=== PATIENT | male | born 1990 | race Caucasian/White ===

== ENCOUNTER 2018-09-08 15:37 | Emergency (ER) | payer BC, OTHER ==
--- NOTE | 2018-09-08 16:17 | EDM.PDOC ---
ED HPI GENERAL MEDICAL PROBLEM - General Chief Complaint: Head Injury Stated Complaint: POSSIBLE CONCUSSION? Time Seen by Provider: 09/08/18 16:17 Source of Information: Reports: Patient History Limitations: Reports: No Limitations - History of Present Illness INITIAL COMMENTS - FREE TEXT/NARRATIVE: Injury occurred 07 September Onset: Sudden Onset Date: 09/07/18 Onset Time: 14:00 Duration: Hour(s): Location: Reports: Head Quality: Reports: Ache, Dull Severity: Moderate Improves with: Reports: Rest Worsens with: Reports: Movement Associated Symptoms: Reports: Headaches, Malaise, Weakness Right Head Pain Score (Numeric/FACES): 3 - Related Data Allergies Allergy/AdvReac Type Severity Reaction Status Date / Time ceftriaxone [From Rocephin] Allergy Rash Verified 09/08/18 15:50 Penicillins Allergy Rash Verified 09/08/18 15:50 Home Meds: Home Meds Methylphenidate HCl [Methylphenidate ER] 54 mg PO DAILY 09/08/18 [History] Past Medical History HEENT History: Reports: Otitis Media Cardiovascular History: Reports: High Cholesterol Gastrointestinal History: Reports: Chronic Constipation, Hemorrhoids Psychiatric History: Reports: ADD - Infectious Disease History Infectious Disease History: Reports: Chicken Pox - Past Surgical History HEENT Surgical History: Reports: Myringotomy w Tube(s), Oral Surgery Social & Family History - Family History Family Medical History: Noncontributory - Tobacco Use Smoking Status *Q: Never Smoker Second Hand Smoke Exposure: No - Caffeine Use Caffeine Use: Reports: Coffee, Soda Caffeine Use Comment: multiple cups/sodas/day - Alcohol Use Days Per Week of Alcohol Use: 7 Number of Drinks Per Day: 2 Total Drinks Per Week: 14 - Recreational Drug Use Recreational Drug Use: No ED ROS GENERAL - Review of Systems Review Of Systems: See Below Constitutional: Reports: No Symptoms HEENT: Reports: Other (imbalance feeling, but no fall) Respiratory: Reports: No Symptoms Cardiovascular: Reports: No Symptoms Endocrine: Reports: No Symptoms GI/Abdominal: Reports: No Symptoms : Reports: No Symptoms Musculoskeletal: Reports: No Symptoms Skin: Reports: Wound (rt scalp upper parietal) Neurological: Reports: Headache, Weakness Psychiatric: Reports: No Symptoms Hematologic/Lymphatic: Reports: No Symptoms Immunologic: Reports: No Symptoms ED EXAM, HEAD INJURY - Physical Exam Exam: See Below General Appearance: Alert, WD/WN, No Apparent Distress, Mild Distress Head: Scalp Lacerations (No active bleeding no evidence of infection), Scalp Hematoma Ears: Normal External Exam, Normal Canal, Hearing Grossly Normal, Normal TMs Nose: Normal Inspection, Normal Mucousa, No Blood Throat/Mouth: Normal Inspection, Normal Lips, Normal Teeth, Normal Gums, Normal Oropharynx, Normal Voice, No Airway Compromise Neck: Non-Tender, Full Range of Motion, Normal Alignment, Normal Inspection Respiratory: No Respiratory Distress, Lungs Clear, Normal Breath Sounds, No Accessory Muscle Use, Chest Non-Tender Cardiovascular: Normal Peripheral Pulses, Regular Rate, Rhythm, No Edema, No Gallop, No JVD, No Murmur, No Rub GI/Abdominal Exam: Normal Bowel Sounds, Soft, Non-Tender, No Organomegaly, No Distention, No Abnormal Bruit, No Mass (Male) Exam: Deferred Rectal (Males) Exam: Deferred Back Exam: Full Range of Motion Extremities: Normal Range of Motion, Non-Tender, Normal Capillary Refill 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 No: Abnormal Gait, Aphasia, Facial Droop, Motor Weakness Skin: Normal Color, Warm/Dry - [place] Coma Score Best Eye Response ([place]): (4) Open Spontaneously Best Verbal Response ([place]): (5) Oriented Best Motor Response ([place]): (6) Obeys Commands Course - Vital Signs Last Recorded V/S: Last Vital Signs Temp 37.2 C 09/08/18 15:52 Pulse 79 09/08/18 15:52 Resp 16 09/08/18 15:52 BP 148/91 H 09/08/18 16:13 Pulse Ox 99 09/08/18 15:52 - Orders/Labs/Meds Orders: Active Orders 24 hr Category Date Time Status Vaccines to be Administered [RC] PER UNIT ROUTINE Care 09/08/18 16:24 Active Meds: Medications Discontinued Medications Generic Name Dose Route Start Last Admin Trade Name Freq PRN Reason Stop Dose Admin Diphtheria/Tetanus/Acell Pertussis 0.5 ml 09/08/18 16:24 09/08/18 16:36 Adacel IM 09/08/18 16:25 0.5 ml .ONCE ONE Administration Departure - Departure Time of Disposition: 16:37 Disposition: Home, Self-Care 01 Condition: Good Clinical Impression: Concussion with no loss of consciousness, Post concussion syndrome, Laceration Concussion Qualifiers: Encounter type: initial encounter Loss of consciousness presence/duration: without LOC Qualified Code(s): S06.0X0A - Concussion without loss of consciousness, initial encounter - Discharge Information *PRESCRIPTION DRUG MONITORING PROGRAM REVIEWED*: Not Applicable *COPY OF PRESCRIPTION DRUG MONITORING REPORT IN PATIENT DERICK: Not Applicable Instructions: Head Injury, Adult Referrals: Stefanie Blair MD [Primary Care Provider] - Forms: ED Department Discharge Additional Instructions: Home rest with no light sensitive activity, TV, Computer and such. Quite cool environment until improving. Avoid caffeine and stimulants. Contact employer for W[employer] documentation. Recheck at you clinic on Wednesday, for release clearing you to return to work paperwork. Call them tomorrow to assure appointment time. Eat and drink healthy well balanced diet. return if worsens or contact your clinic - Problem List & Annotations (1) Post concussion syndrome SNOMED Code(s): 88817041 Code(s): F07.81 - POSTCONCUSSIONAL SYNDROME Status: Acute Priority: High Onset Date: ~09/08/18 (2) Immunization due SNOMED Code(s): 627311771 Code(s): Z23 - ENCOUNTER FOR IMMUNIZATION Status: Acute Priority: High Onset Date: ~09/08/18 (3) Laceration SNOMED Code(s): 535247481 Code(s): [id number] - Status: Acute Priority: Medium Onset Date: ~ - Problem List Review Problem List Initiated/Reviewed/Updated: Yes - My Orders Last 24 Hours: My Active Orders 09/08/18 16:24 Vaccines to be Administered [RC] PER UNIT ROUTINE - Assessment/Plan Last 24 Hours: My Active Orders 09/08/18 16:24 Vaccines to be Administered [RC] PER UNIT ROUTINE Plan: Home rest with no light sensitive activity, TV, Computer and such. Quite cool environment until improving. Avoid caffeine and stimulants. Contact employer for WSI documentation. Recheck at you clinic on Wednesday, for release clearing you to return to work paperwork. Call them tomorrow to assure appointment time. Eat and drink healthy well balanced diet. return if worsens or contact your clinic.
[2018-09-08] MEDS ORDERED: Diphtheria,Pertussis(Acell),Tetanus Vaccine 0.5 ML SDV IM ONE (16:24)
== END 2018-09-08 17:00 | disposition home or self-care (01) ==
LOC: KA.ED 15:37
DX: S06.0X0A Concussion without loss of consciousness, initial encounter (principal); S01.01XA Laceration without foreign body of scalp, initial encounter; Z88.0 Allergy status to penicillin; Z23 Encounter for immunization; Z88.8 Allergy status to other drugs, medicaments and biological substances; W22.8XXA Striking against or struck by other objects, initial encounter
CPT/HCPCS: 90471; 90715; 99283

== ENCOUNTER 2022-12-03 20:24 | Emergency (ER) | payer OTHER, BC ==
[2022-12-04 01:12] VITALS: BP 142/95; PULSE 101
== END 2022-12-03 21:17 | disposition home or self-care (01) ==
LOC: KA.ED 20:24
DX: S93.401A Sprain of unspecified ligament of right ankle, initial encounter (principal); Z88.0 Allergy status to penicillin; Z88.1 Allergy status to other antibiotic agents; X50.1XXA Overexertion from prolonged static or awkward postures, initial encounter
CPT/HCPCS: 73610-RT; 99283